=== PATIENT | female | born 1965 | race Caucasian/White ===

== ENCOUNTER → 2017-11-06 | Outpatient (CLI) | payer OTHER | LOC: BRMIMAGING 12:13 | PROVIDERS: ATTEND Internal Medicine | DX: M17.0 Bilateral primary osteoarthritis of knee (principal); M25.571 Pain in right ankle and joints of right foot; M25.572 Pain in left ankle and joints of left foot; M25.521 Pain in right elbow; M25.522 Pain in left elbow | CPT/HCPCS: 73080-PO; 73562-PO; 73630-PO ==